=== PATIENT | male | born 1965 | race Caucasian/White ===

== ENCOUNTER → 2017-11-10 | Outpatient (CLI) | payer OTHER | LOC: CAT 14:24 | DX: Z01.812 Encounter for preprocedural laboratory examination (principal); T79.2XXA Traumatic secondary and recurrent hemorrhage and seroma, initial encounter; T88.8XXA Other specified complications of surgical and medical care, not elsewhere classified, initial encounter; N28.1 Cyst of kidney, acquired; J98.11 Atelectasis; B99.9 Unspecified infectious disease; I10 Essential (primary) hypertension; Z87.19 Personal history of other diseases of the digestive system; Z90.49 Acquired absence of other specified parts of digestive tract; Z98.890 Other specified postprocedural states ==